=== PATIENT | male | born 1940 | race Caucasian/White ===

== ENCOUNTER 2016-09-25 05:26 | Inpatient (IN) | payer MEDICARE, OTHER ==
[2016-09-24 09:24] VITALS: BMI 37.0; BMI 43.0
[~2016-09-25] VITALS: Ht 175.3 cm; Wt 88.7 kg
[2016-09-25] VITALS (40 sets, daily range): BP systolic 113–190; BP diastolic 51–112; PULSE 56–104; RESP 12–19; Ht 175.3 cm; Wt 88.7 kg
[~2016-09-25 05:26] MED LIST: ASCO-163 PO; ASPI-664 PO; BIOT800T PO; BUPIVACAINE 0.25% (MPF) 30 ML INJ INJ ONE; CITRICAL; FISH1CAP PO; MAGN400C PO; MELO-174 PO; MULT-860 PO; RED600CA7 PO; RESV250C2 PO; VITA1TAB58 PO; ZINC1CAP PO
[2016-09-25] MEDS ORDERED: oxyCODONE (CR) 10 MG TAB [oxyCONTIN] PO ONE (05:30)
[2016-09-25] MEDS ORDERED: traMADol 50 MG TAB PO ONE (05:30)
[2016-09-25] MEDS ORDERED: TRANEXAMIC ACID 1,000 MG in SOD CHLORIDE 0.9% 100 ML IVPB ONE (05:30)
[2016-09-25] MEDS ORDERED: CEFAZOLIN 2 GM/50 ML (PMX) 50 ML IVPB ONE (05:30)
[2016-09-25] MEDS ORDERED: DEXAMETHASONE 1 MG TAB PO ONE (05:30)
[2016-09-25] MEDS ORDERED: GABAPENTIN 300 MG CAP PO ONE (05:30)
[2016-09-25] MEDS ORDERED: BUPIVACAINE 0.5% (SDV) 30 ML INJ ONE (06:38)
[2016-09-25] MEDS ORDERED: THROMBIN 5000 UNIT VIAL ONE (06:39)
[2016-09-25] MEDS ORDERED: POLYMYXIN/BACITRACIN 1L IRRIG ONE (06:39)
[2016-09-25] MEDS ORDERED: CA CHLORIDE 10% 10 ML SYRINGE ONE (06:39)
--- NOTE | 2016-09-25 06:47 | HPN ---
Date/Time of Note Date/Time of Note DATE: 09/25/16 TIME: 06:47 Interval H&P Admission Note Pt. seen H&P reviewed: No system changes NICOLÁS HOOD MD Sep 25, 2016 06:47
[2016-09-25] MEDS ORDERED: MIDAZOLAM 1 MG/ML 2 ML INJ ONE (06:58)
[2016-09-25] MEDS ORDERED: BUPIVACAINE 0.25%/EPI (SDV) 30 ML INJ ONE (07:01)
[2016-09-25] MEDS ORDERED: ROPIVACAINE 0.5 % 30 ML VIAL ONE (07:01)
[2016-09-25] MEDS: BUPIVACAINE 0.5% (SDV) 30 ML, morphine SULFATE (PF) 8 MG, EPINEPHrine 0.3 MG, KETOROLAC... IRR SCH ×14 (07:44→19:00)
[2016-09-25] MEDS ORDERED: HYDROmorphONE (0.2 MG/ML) 10ML SYG IV PRN ×2 (08:00)
[2016-09-25] MEDS ORDERED: METOCLOPRAMIDE 10 MG INJ IV PRN (08:00)
[2016-09-25] MEDS ORDERED: DIPHENHYDRAMINE 50 MG INJ IV PRN ×2 (08:00→09:00)
[2016-09-25] MEDS ORDERED: FENTAnyl 50 MCG/ML VIAL IV PRN (08:00)
[2016-09-25] MEDS ORDERED: ONDANSETRON 4 MG INJ IV PRN ×2 (08:00→09:00)
[2016-09-25] MEDS ORDERED: NALOXONE (0.4 MG/ML) INJ IV PRN (08:00)
[2016-09-25] MEDS ORDERED: MEPERIDINE 25 MG INJ IV PRN (08:00)
[2016-09-25] MEDS ORDERED: TOBRAMYCIN 1.2 GM POWDER ONE (08:08)
[2016-09-25] MEDS ORDERED: LIDOCAINE 2% (SDV) 5 ML INJ ONE (08:38)
[2016-09-25] MEDS ORDERED: ETOMIDATE 20 MG INJ ONE (08:38)
[2016-09-25] MEDS ORDERED: CEFAZOLIN 1 GM INJ ONE (08:39)
[2016-09-25] MEDS ORDERED: ONDANSETRON 4 MG INJ ONE (08:43)
--- NOTE | 2016-09-25 08:57 | PDOCDIS ---
Discharge Instructions DIAGNOSIS Discharge Diagnosis: Left shoulder arthritis CONDITION Patient Condition: Good HOME CARE INSTRUCTIONS: Diet Instructions: Regular ACTIVITY: Activity Restrictions: Slowly Increase Activity Keep Limb Elevated Bathing Restrictions: Shower FOLLOW UP/APPOINTMENTS Appointments 2 weeks SCHOOL/WORK RELEASE May return to School/Work with: With Restrictions School/Work Release Comment: Five pound table top usage for six weeks NICOLÁS HOOD MD Sep 25, 2016 08:57
[2016-09-25] MEDS ORDERED: morphine 2 MG INJ IV PRN (09:00)
[2016-09-25] MEDS ORDERED: KETOROLAC 15 MG INJ IV PRN (09:00)
[2016-09-25] MEDS ORDERED: OXYCODONE/ACETAMINOPHEN (5/325) TAB PO PRN ×2 (09:00)
[2016-09-25] MEDS ORDERED: MAGNESIUM HYDROXIDE 30ML CUP PO PRN (09:00)
[2016-09-25] MEDS ORDERED: TRANEXAMIC ACID 1,000 MG in SOD CHLORIDE 0.9% 100 ML IV ONE (09:00)
[2016-09-25] MEDS ORDERED: morphine 4 MG/ML VIAL IV PRN (09:00)
[2016-09-25] MEDS ORDERED: ZOLPIDEM 5 MG TAB PO PRN (09:00)
[2016-09-25] MEDS ORDERED: ACETAMINOPHEN 500 MG TAB PO PRN (09:00)
--- NOTE | 2016-09-25 09:45 | RADRPT ---
PROCEDURE: XR Scapula. CLINICAL INDICATION: Postop TECHNIQUE: Two views of the left scapula are available for review. COMPARISON: None available FINDINGS: Patient is status post left shoulder arthroplasty. Alignment is grossly anatomic. Hardware appears intact. There is no evidence of hardware failure or fracture. There are mild degenerative change of the left acromioclavicular joint. Postoperative changes including subcutaneous gas are noted. T he visualized portions of the left chest wall are grossly within normal limits. IMPRESSION: 1. Left shoulder arthroplasty in anatomic alignment. RPTAT: KK .Eladio Lizarraga MD, MD Date Time Electronically viewed and signed by .Eladio Lizarraga MD, MD on 09/25/2016 09:45 .B/
[2016-09-25] MEDS ORDERED: FENTAnyl 50 MCG/ML VIAL ONE (09:48)
--- NOTE | 2016-09-25 10:01 | OPR ---
DATE OF OPERATION: 09/25/2016 SURGEON: Nicolás Winn MD VIOLIN REPAIRER: Lino Stallworth MD PREOPERATIVE DIAGNOSIS: Left shoulder degenerative osteoarthritis. POSTOPERATIVE DIAGNOSIS: Degenerative osteoarthritis of the left shoulder. PROCEDURE: Left total shoulder arthroplasty. Customer Service Assistant surgeon, Lino Stallworth MD, was asked to be present at my request as a result of significan t surgical complexity associated with this procedure, including positioning of the extremity, manipu lation, and protection of the neurovascular structures. In my opinion, the assistance offered by a network technology instructor is insufficient and Dr. Stallworth should be compensated for his time. PROCEDURE IN DETAIL: Following administration of general endotracheal anesthesia, the patient was p laced in the beach chair position. The left upper extremity was prepped and draped in the usual higinio rile fashion. An extended deltopectoral incision was then undertaken, exposing the conjoined tendon , retracting it medially. Subscapularis was incised and the biceps tendon tenodesed. The intraarti cular portion of the tendon was severely degenerative. The humeral head was then dislocated. Severe arthritic changes were noted. Peripheral osteophytes were removed and the humeral head cut was then made in the appropriate degree of version and inclina tion. The humeral head was retracted. The glenoid exposed. Peripheral osteophytes were removed. Capsule ctomy was then completed. The central canal was entered and prepared for a 48 mm DePuy glenoid. Th e actual glenoid was then implanted with cement with solid fixation. The humerus was then addressed once again. A 14 mm humeral component was then implanted with a 52 x 16 humeral head. The joint was taken through a full range of motion with solid fixation. The joint was irrigated. The subscapularis was reapproximated using #2 sutures that were passed cir cumferentially around the humeral component. A watertight closure was obtained. The joint was take n through a full range of motion with no instability. The joint was then further irrigated, closed using running stitches, 0, 2-0, 4-0. The skin was closed using a Prineo dressing. The patient was then awakened and transported to recovery room in stable condition, tolerating the procedure well. Estimated blood loss for this procedure was 100 mL. Postoperative x-rays will be obtained in the re covery room. Dictated By: NICOLÁS DAVIDSON/ALEJANDRA Conf#: [id number] DID#: [id number]
[2016-09-25] MEDS: SENNA/DOCUSATE NA (8.6MG/50MG) TAB PO SCH ×2 (12:22→20:31)
[2016-09-25] MEDS ORDERED: hydrALAzine 20 MG INJ IV PRN (12:30)
[2016-09-25] MEDS: DEXAMETHASONE 2 MG TAB PO SCH ×2 (12:34→17:32)
[2016-09-25] MEDS: CEFAZOLIN 1 GM/50 ML (PMX) 50 ML IVPB SCH (17:09)
[2016-09-25] MEDS ORDERED: GABAPENTIN 300 MG CAP PO SCH (21:00)
[2016-09-26] MEDS: CEFAZOLIN 1 GM/50 ML (PMX) 50 ML IVPB SCH ×2 (00:08→08:00)
[2016-09-26] MEDS: DEXAMETHASONE 2 MG TAB PO SCH ×2 (00:08→05:43)
--- NOTE | 2016-09-26 06:50 | PN ---
Date/Time of Note Date/Time of Note DATE: 09/26/16 TIME: 06:50 24 hour Interval Summary Patient has minimal pain complaints. Clinical examination reveals that his wound is clean and dry she is neurologically intact in the left upper extremity there are no signs of DVT. Assessment: Status post total shoulder replacement Plan: Physical therapy followed by discharge to later this morning Physical Exam Vital Signs Date Time Temp Pulse Resp B/P Pulse Ox O2 Delivery O2 Flow Rate FiO2 09/25/16 19:00 97.5 100 19 141/81 93 09/25/16 14:30 Nasal Cannula 2.0 Intake and Output 09/25/16 09/25/16 09/26/16 15:00 23:00 07:00 Intake Total 470 ml 750 ml Balance 470 ml 750 ml VTE Prophylaxis VTE Prophylaxis Intervention: anti-embolic stocking Lines/Catheters IV Catheter Type: Saline Lock Alex in Place: No Medications Medications Home Meds Reported Medications Aspirin (Aspirin) 81 Mg Tablet.dr, 81 MG PO DAILY 12/08/13 Biotin (Biotin) 800 Mcg Tablet, 800 MCG PO DAILY 12/08/13 Zinc Mth/Copper/Saw Palm/Gnsg (Prostate Health Formula Sftgel) 1 Each Capsule, 1 EACH PO DAILY 12/08/13 [Citrical] No Conflict Check 12/08/13 Magnesium Oxide (Mag Oxide) 400 Mg Capsule, 400 MG PO DAILY 12/08/13 Red Yeast Rice Extract (Red Yeast Rice) 600 Mg Capsule, 600 MG PO BID 12/08/13 Vitamin B Complex (B Complex) 1 Tab.sa Tablet.sa, 1 TAB.SA PO DAILY 12/08/13 Mu-Vits-Min Th/Lycopene/Lutein (CENTRUM SILVER TABLET) 1 Each Tablet, 1 EACH PO DAILY 12/08/13 Resveratrol (Resveratrol) 250 Mg Capsule, 250 MG PO DAILY 12/08/13 Ascorbic Acid (Vitamin C With Bee Hips) 1,000 Mg Tablet, 1000 MG PO BID 12/08/13 Fish Oil/Dha/Epa (FISH OIL 1,200 MG FISH OIL) 1 Each Capsule, 1 EACH PO BID 12/08/13 Meloxicam* (Mobic*) 7.5 Mg Tab, 7.5 MG PO DAILY, TAB 14 NICOLÁS HOOD MD Sep 26, 2016 06:50
--- NOTE | 2016-09-26 06:55 | DS ---
Date/Time of Note Date/Time of Note DATE: 09/26/16 TIME: 06:54 Discharge Summary Admission/Discharge Info Admit Date/Time Sep 25, 2016 at 05:26 Discharge Date/Time September 26 2016 following physical therapy Final Diagnosis Left shoulder primary osteoarthritis Patient Condition: Good Procedures Left total shoulder replacement Hx of Present Illness Pain and stiffness in the left shoulder for several years Hospital Course Surgery, followed by therapy, followed by discharge home Home Meds Reported Medications Aspirin (Aspirin) 81 Mg Tablet.dr, 81 MG PO DAILY 12/08/13 Biotin (Biotin) 800 Mcg Tablet, 800 MCG PO DAILY 12/08/13 Zinc Mth/Copper/Saw Palm/Gnsg (Prostate Health Formula Sftgel) 1 Each Capsule, 1 EACH PO DAILY 12/08/13 [Citrical] No Conflict Check 12/08/13 Magnesium Oxide (Mag Oxide) 400 Mg Capsule, 400 MG PO DAILY 12/08/13 Red Yeast Rice Extract (Red Yeast Rice) 600 Mg Capsule, 600 MG PO BID 12/08/13 Vitamin B Complex (B Complex) 1 Tab.sa Tablet.sa, 1 TAB.SA PO DAILY 12/08/13 Mu-Vits-Min Th/Lycopene/Lutein (CENTRUM SILVER TABLET) 1 Each Tablet, 1 EACH PO DAILY 12/08/13 Resveratrol (Resveratrol) 250 Mg Capsule, 250 MG PO DAILY 12/08/13 Ascorbic Acid (Vitamin C With Bee Hips) 1,000 Mg Tablet, 1000 MG PO BID 12/08/13 Fish Oil/Dha/Epa (FISH OIL 1,200 MG FISH OIL) 1 Each Capsule, 1 EACH PO BID 12/08/13 Meloxicam* (Mobic*) 7.5 Mg Tab, 7.5 MG PO DAILY, TAB 12/08/13 Follow-up Plan 2 weeks Pending Labs None NICOLÁS HOOD MD Sep 26, 2016 06:55
[2016-09-26] MEDS ORDERED: ASPIRIN 81 MG TAB PO SCH (09:00)
== END 2016-09-26 08:47 | disposition home or self-care (01) | DRG 483 ==
LOC: REC 05:26 → MS1 11:12
PROVIDERS: ADMIT Orthopaedic Surgery; ATTEND Orthopaedic Surgery
PROC: 0RRK0JZ Replacement of Left Shoulder Joint with Synthetic Substitute, Open Approach (ICD-10-PCS; principal; 2016-09-25 07:00)
DX: M19.012 Primary osteoarthritis, left shoulder (principal); M25.612 Stiffness of left shoulder, not elsewhere classified; Z79.82 Long term (current) use of aspirin
CPT/HCPCS: 73030; 86999; 97167; Z7610; C1776; J0171; J0360; J0690; J0735; J1885; J2250; J2274; J2405; J2795; J3010; J3370